=== PATIENT | female | born 1995 | race Caucasian/White ===

== ENCOUNTER 2017-02-13 22:15 | Emergency (ER) | payer OTHER ==
[~2017-02-13] VITALS: Ht 162.6 cm; Wt 47.6 kg
[~2017-02-13 22:15] MED LIST: ZOFRAN4 M1 PO
[2017-02-13 22:28] VITALS: BP 127/70
--- NOTE | 2017-02-13 23:03 | ED HEAD/FACIAL INJ COMPLAINT ---
History of Present Illness General Chief Complaint: Facial or Head Injury Stated Complaint: HEAD PAIN AFTER HITTING HEAD PER PT Source: patient Exam Limitations: no limitations Vital Signs & Intake/Output Vital Signs & Intake/Output Vital Signs Date Time Temp Pulse Resp B/P B/P Pulse O2 O2 Flow FiO2 Mean Ox Delivery Rate 02/13 2228 98.0 65 18 127/70 99 Room Air Allergies Coded Allergies: NO KNOWN ALLERGIES (10/19/14) Triage Note: RECEIVED 21 YO FEMALE C/O HIT ON THE TOP OF HER HEAD BY A DOOR AT WORK YESTERDAY, NO LOC. WAS DAZED. PT REPORTS NECK PAIN AND POUNDING H/A. Triage Nurses Notes Reviewed? yes Onset: Abrupt Severity: moderate Location: parietal Method of Injury: direct blow Loss of Consciousness: no loss of consciousness : No Patient currently breastfeeds: No HPI: Patient is a 21-year-old female presenting to the emergency department with chief complaint of headache, nausea and bilateral neck pain has been going on for the paST 18 hours. 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 No LOC. She did have a headache shortly after. She's had nausea but no vomiting. She also reports bilateral neck pain and achiness. Symptoms worse with movement. Patient reports sensitivity to light. Has been taking Motrin and Tylenol with some relief. No confusion. Denies numbness or tingling. No visual changes. (HARRY SCHNEIDER) Reconcile Medications Ondansetron (Zofran Odt) 4 MG TAB.RAPDIS 1 TAB SL TID PRN NAUSEA Ondansetron (Zofran Odt) 4 MG TAB.RAPDIS 1 TAB PO Q6H PRN NAUSEA (LAWANDA GLASGOW MD) Past History Travel History Traveled to [place] past 21 day No Medical History Any Pertinent Medical History? see below for history Neurological: NONE EENT: NONE Cardiovascular: NONE Respiratory: asthma Gastrointestinal: NONE Hepatic: NONE Renal: NONE Musculoskeletal: NONE Psychiatric: NONE Endocrine: NONE Blood Disorders: NONE Cancer(s): NONE Surgical History Surgical History: non-contributory Psychosocial History What is your primary language Sami Tobacco Use: Never used Family History Hx Contributory? No (HARRY SCHNEIDER) Review of Systems Review of Systems Constitutional: Reports: no symptoms. Comments Review of systems: See HPI, All other systems negative. Constitutional, no chills fever or weight loss HEENT: No visual changes no sore throat no congestion Cardiovascular: No chest pain ,palpitation , orthopnea or ankle swelling Skin, no jaundice no rashes Respiratory: No dyspnea cough sputum or hemoptysis GI: no vomiting : No dysuria No hematuria Muscle skeletal: no back pain Neurologic: No numbness no confusion Psych: No stress anxiety or depression,. Heme/endocrine: No bruising no bleeding no polyuria or polydipsia Immunology: No splenectomy or history of AIDS (HARRY SCHNEIDER) Physical Exam Physical Exam General Appearance: well developed/nourished, no apparent distress, alert, awake , comfortable Cranial Nerves: CN 2-12 INTACT Comments: Well-developed well-nourished person in no acute distress HEENT: Normal EENT exam, extraocular motion intact, no nystagmus. Pupils equally round and reactive to light and accommodation. Nose is atraumatic. External auditory canal and Tympanic membranes clear. Pharynx normal. No swelling or edema. No hemotympanum noted bilaterally. Funduscopic: Somewhat limited secondary no dilation, no obvious retinal detachment or venouS NICKING . Neck: Supple, no lymphadenopathy, normal range of motion without pain or tenderness, NO C SPINE TENDERNESS, TENDER TO PALPATION ALONG PARASPINAL MUSCLES OF CERVICAL SPINE, FULL ROM. Back: Nontender Cardiovascular: Regular rate and rhythms no murmurs rubs or gallops, normal JVP Respiratory: Chest nontender. No respiratory distress.breath sounds clear to auscultation bilaterally Extremity: No edema, no calf tenderness to palpation, normal and equal pulses. FULL ROM OF UPPER AND LOWER EXT BILATERALLY. MUSCLE STRENGHT IS 5/5 IN ALL EXT. Neuro: Alert oriented x3, motor sensory normal, cranial nerves II through XII grossly intact. Cerebellar testing is unremarkable. Skin: No appreciable rash on exposed skin, skin is warm and dry. Psych: Mood and affect is normal, memory and judgment is normal. (HARRY SCHNEIDER) Progress Differential Diagnosis: ICH, orbit fracture, skull fracture, POST CONCUSSIVE SYNCROME Plan of Care: No LOC at time of injury, no vomiting. Neurologically intact. No focal deficits. No indication for imaging at this time. Likely postconcussive syndrome. Patient will be treated symptomatically. Educated on increasing fluids. She was educated on signs and symptoms to return. Also given [facility] follow-up. (HARRY SCHNEIDER) Departure Departure Time of Disposition: 2323 Disposition: HOME OR SELF CARE Condition: Stable Clinical Impression Primary Impression: Post concussion syndrome Secondary Impressions: Minor head injury Qualifiers: Encounter type: initial encounter Qualified Code: S00.90XA - Unspecified superficial injury of unspecified part of head, initial encounter Referrals: DIONI KELLER MD (PCP/Family) Additional Instructions: Follow-up with [facility], call to make an appointment. Increase fluids. Take anti-inflammatory as prescribed help with neck pain and headaches. Take Zofran as prescribed for any nausea. Avoid excessive stimuli such as bright lights, loud sounds. RETURN FOR Any worsening headaches, vomiting, confusion or concerns. Departure Forms: Customer Survey General Discharge Information (HARRY SCHNEIDER) Departure Prescriptions: Current Visit Scripts Ondansetron (Zofran Odt) 1 TAB SL TID PRN NAUSEA #10 TAB PA/HIGHWAY TRAFFIC CONTROL TECHNICIAN Co-Sign Statement Statement: ED Attending supervision documentation- I saw and evaluated the patient. I have also reviewed all the pertinent lab results and diagnostic results. I agree with the findings and the plan of care as documented in the PA's/HIGHWAY TRAFFIC CONTROL TECHNICIAN's documentation. x I have reviewed the ED Record and agree with the PA's/HIGHWAY TRAFFIC CONTROL TECHNICIAN's documentation. [] Additions or exceptions (if any) to the PAs/HIGHWAY TRAFFIC CONTROL TECHNICIAN's note and plan are summarized below: [] (MYAH HER,LAWANDA)
[2017-02-13] MEDS ORDERED: ZOFRAN ODT4 M1 SL (23:26)
[2017-02-13] MEDS ORDERED: IBUPROFEN400 M1 PO (23:26)
== END 2017-02-13 23:34 ==
LOC: ERH 22:15
DX: S09.90XA Unspecified injury of head, initial encounter (principal); F07.81 Postconcussional syndrome; W22.8XXA Striking against or struck by other objects, initial encounter; Y93.89 Activity, other specified; Y92.511 Restaurant or cafe as the place of occurrence of the external cause